=== PATIENT | male | born 2000 | race Caucasian/White ===

== ENCOUNTER 2020-03-13 09:26 | Outpatient (REF) | payer MEDICAID, SELFPAY | END 2020-03-13 09:27 | disposition home or self-care (01) | LOC: HO.LAB 09:26 | PROVIDERS: PCP Nurse Practitioner Family; Visit Provider Internal Medicine | DX: Z20.828 Contact with and (suspected) exposure to other viral communicable diseases (principal) | CPT/HCPCS: C9803; U0003 ==

== ENCOUNTER 2022-08-05 07:14 | Emergency (ER) | payer MEDICAID, SELFPAY ==
--- NOTE | ~2022-08-05 | XR_ITS ---
EXAMINATION: XR CHEST CLINICAL INFORMATION: Fever COMPARISON: None available. TECHNIQUE: 2 views of the chest were obtained. FINDINGS: No significant abnormality is noted involving the heart, lungs, mediastinum, bony thorax or soft tissues. XR/XR chest 2V IMPRESSION: Unremarkable chest examination.
[2022-08-05 07:45] VITALS: PULSE 104; RESP 16; TEMP 38.4; O2SAT 98; BMI 25.7
--- NOTE | 2022-08-05 07:48 | ED_ITS ---
HPI - Fever General Chief Complaint: Fever Stated Complaint: fever Time Seen by Provider: 08/05/22 07:45 Source: patient, RN notes reviewed and old records reviewed Mode of arrival: ambulatory History of Present Illness HPI Narrative: 21-year-old male with no significant past medical history presenting to the ED complaining of fever T-max 101 degrees x 3 days. Denies taking any antipyretics today. Reports associated nasal congestion/rhinorrhea, dry cough, and sore throat. Reports mild CP yesterday, resolved at present. Denies ear pain, difficulty/inability to swallow, SOB, abdominal pain, nausea/vomiting, decreased p.o. intake, recent travel, sick contacts MD elicited complaint: fever Related Data Allergies Allergy/AdvReac Type Severity Reaction Status Date / Time No Known Allergies Allergy Unverified 11/27/19 16:59 [No Known Allergies*] Review of Systems Review of Systems: Constitutional: + Fever, No Chills ENT/Mouth: No Ear Pain, + Nasal Congestion, No Sinus Pain, No Hoarseness, + sore throat, + Rhinorrhea, No Swallowing Difficulty Cardiovascular: No Chest Pain, No SOB Respiratory: + Cough, No Sputum, No Wheezing Gastrointestinal: No Nausea, No Vomiting, No Diarrhea, No Constipation, No Abdominal pain Genitourinary: No Dysuria, No Urinary Frequency, No Flank Pain Musculoskeletal: No joint pain, + Myalgias, No Joint Swelling Skin: No Skin Lesions, No rash Neuro: No Weakness Yes all other systems are reviewed and are negative Constitutional: Constitutional: Reports as per [facility] Past Medical History Attestation statement: The following information was validated with the patient. Source: old records reviewed Social History Social History Advance Directives: No Advance Directives Information Provided: No Physical Exam Vital Signs: Vital Signs: Last Vital Signs Temp 98.1 F 08/05/22 11:01 Pulse 92 08/05/22 11:01 Resp 16 08/05/22 11:01 BP 132/66 08/05/22 11:01 Pulse Ox 98 08/05/22 11:01 O2 Del Method Room Air 08/05/22 11:01 BMI result Body Mass Index 25.7 Const: General: cooperative, healthy appearing, no acute distress, alert and awake Orientation/consciousness: patient oriented x3 Limitations: no limitations HEENT: Head: Yes normal to inspection and Yes atraumatic Ears: hearing raj sly normal bilaterally, external ears normal, TM's normal bilaterally and mastoids normal General nose exam: Normal external nose present Face and sinus: Yes normal facial exam Throat: Yes posterior oropharynx normal, Yes tonsils normal, Yes uvula midline, No uvula laterally displaced and No uvular edema Eyes: General: appearance normal, both eyes and all related structures EOM: EOMs intact bilaterally Neck: Neck: Yes normal visual inspection and Yes no meningeal signs Resp: Effort & Inspection: normal respiratory effort and no respiratory distress Auscultation: clear to auscultation bilaterally, no crackles and no wheezes Cardio: Rate: regular rate Heart sounds: S1 normal heart sound present and S2 normal heart sound present Skin: Rashes: no rashes Wounds: no wounds Neuro: General: patient oriented x3, tone normal and no meningeal signs Gait exam (Neuro): Normal gait present Extrem: General: Yes normal to inspection Course Course Course Narrative: -1117--vital signs improved after PO Motrin -COVID/influenza/rapid strep negative. CXR unremarkable > likely viral etiology Results discussed with patient including worrisome signs and symptoms and strict return precautions, and when to return to the emergency department. They verbalized understanding and feel safe for discharge at this time. Medications Administered Discontinued Medications Generic Name Dose Route Start Last Admin Trade Name Freq PRN Reason Stop Dose Admin Ibuprofen 600 mg 08/05/22 08:06 08/05/22 08:39 Ibuprofen 600 Mg Tablet PO 08/05/22 08:07 600 mg ONCE ONE Administration Medical Decision Making Medical Decision Making [facility] Narrative: 21-year-old male with no significant past medical history presenting to the ED complaining of fever T-max 101 degrees x 3 days. Denies taking any antipyretics today. On exam febrile to 101.2, tachycardic likely from fever, NAD/nontoxic appearing, lungs CTA, exam otherwise nonfocal. Concern for viral illness vs pneumonia vs pharyngitis. Lower suspicion for ACS/PE Plan COVID/flu, rapid strep, antipyretic, CXR, re-evaluate Please refer to course for remaining clinical decision making, interpretation of labs/imaging results, and discussions with consultants and/or family members. Differential Diagnosis Differential Diagnoses: The differential diagnosis associated with the presentation includes As above Admission/Observation Consideration of admission/observation: Escalation of care including admission/observation considered Lab Data MDM Lab Attestation statement: I reviewed the patient's lab results. Labs: Lab Results 08/05/22 08/05/22 08/05/22 Range/Units 08:54 08:54 08:54 COVID-19 (AMEYA) Negative (Negative) COVID-19 Clin Com See Note Influenza Type A (DEVONTE) Negative (Negative) Influenza A & B Note See Note S. pyogenes GrpA DEVONTE Negative (Negative) Radiology Impression Discussion of test interpretation with radiology: I have reviewed the radiologist's reading. External Record Review External record reviewed: Inpatient record, Office record, Outpatient record, Prior outpatient labs, Prior outpatient radiology, Primary care record and Outside ED record Tests considered The following testing was considered but not selected: As above Discharge Plan Discharge Clinical Impression: Viral infection Patient Disposition: Home, Self-Care Instructions: Viral Syndrome (ED) Additional Instructions: You tested negative for COVID, flu, and strep. Her x-rays unremarkable Please alternate Tylenol and Motrin at home to control fever Stay hydrated Rest Follow-up with her doctor If symptoms persist or worsen return to the ED Referrals: [facility] [Primary Care Provider] - 3 days Stand Alone Forms: Work/School Release Interventions: ED Discharge Assessment Last Done: 08/05/22 11:25 Discharge Date/Time: 08/05/22 11:25
--- NOTE | 2022-08-05 08:18 | ECG_ITS ---
Test Reason : CP Blood Pressure : / mmHG Vent. Rate : 095 BPM Atrial Rate : 095 BPM P-R Int : 124 ms QRS Dur : 082 ms QT Int : 332 ms P-R-T Axes : 054 087 034 degrees QTc Int : 417 ms Normal sinus rhythm with sinus arrhythmia Normal ECG When compared with ECG of 01-JUL-2019 21:05, Nonspecific T wave abnormality, improved in Inferior leads Nonspecific T wave abnormality no longer evident in Anterolateral leads Referred By: Garima Tamayo Electronically Signed By:BREONNA SALAMANCA
[2022-08-05] MEDS: Ibuprofen 600 MG TABLET PO (08:39)
[2022-08-05 09:24] LABS: IDNOW Serial# 08D9AD1C; IDNOW Serial# BCCEAD1C; Influenza A Negative (Negative); Strep A Nucleic Acid Negative (Negative)
[2022-08-05 09:41] LABS: IDNOW Serial# 08D9AD1C
[2022-08-05 09:42] LABS: COVID-19 Test Negative (Negative)
[2022-08-05 11:01] VITALS: BP 132/66; PULSE 92; RESP 16; TEMP 36.7; O2SAT 98
[2022-08-08 09:05] LABS: Influenza B2 Negative (Negative)
== END 2022-08-05 11:25 | disposition home or self-care (01) ==
PROVIDERS: Physician Assistant; Emergency Provider Internal Medicine
DX: B34.9 Viral infection, unspecified (principal); R50.9 Fever, unspecified; Z20.822 Contact with and (suspected) exposure to COVID-19; R00.0 Tachycardia, unspecified
CPT/HCPCS: 71046; 87502; 87635; 87651; 93005; 99283; 99284

== ENCOUNTER 2023-07-03 09:51 | Outpatient (REF) | payer OTHER, SELFPAY ==
--- NOTE | ~2023-07-03 | XR_ITS ---
EXAMINATION: XR WRIST, LEFT CLINICAL INFORMATION: Left wrist pain, distal ulnar region, athlete, swelling onset, not resolved after 6 to 8 weeks after rest. COMPARISON: None available. TECHNIQUE: 5 views of the left wrist. FINDINGS: Bone mineralization is normal. Mild degenerative changes in the first carpometacarpal joint with joint space narrowing and hypertrophic change. XR/XR wrist LT min 3V IMPRESSION: 1. Mild degenerative changes first carpometacarpal joint. 2. Recommend follow up imaging in 10-14 days if fracture is suspected.
== END 2023-07-03 09:52 | disposition home or self-care (01) ==
LOC: HO.HHCX 09:51
PROVIDERS: Visit Provider Nurse Practitioner Family
DX: M24.132 Other articular cartilage disorders, left wrist (principal)
CPT/HCPCS: 73110

== ENCOUNTER 2023-07-19 09:16 | Outpatient (AMB) | payer OTHER, SELFPAY ==
--- NOTE | 2023-07-19 09:19 | A.OFFVIS_ITS ---
Intake Visit Reasons: New Pt - left wrist pain Intake Note: Nicko a 22 year old right hand dominant male who presents today for an evaluation of left wrist pain. Patient reports his pain has been present for about 1.5 months, denies injury. States improvement in his discomfort however he continues to have clicking and discomfort with certain twisting movements. His pain is located at his ulnar aspect of wrist. He found some relief with use of wrist brace. Allergies No Known Allergies [No Known Allergies*] Allergy (Unverified 07/19/23 09:28) Medication List - Last Reconciled 07/19/23 by Leila Stafford PA-C No Known Home Meds HPI HPI New Pt - left wrist pain: Details: 22-year-old right hand dominant male who presents to the office today for evaluation of left wrist pain for about 1.5 months. He states he has improvement in his discomfort however he continues to have a clicking sensation and discomfort at the ulnar aspect of wrist which comes with certain twisting movements. He finds mild relief with wrist brace. He has not had any injury in the past. [facility] Social History (Updated 07/19/23 @ 09:23 by Mary Montoya Lul) Current occupation: director, right hand dominant Review of Systems Const All systems reviewed & are unremarkable except as noted in HPI and below Physical Exam Const General: cooperative, healthy appearing, comfortable, no acute distress, well developed and alert Orientation/consciousness: patient oriented x3 HEENT Head: Yes normal to inspection, Yes normocephalic and Yes atraumatic Eyes General: appearance normal, both eyes and all related structures Resp Effort & Inspection: normal respiratory effort and able to speak in complete sentences Cardio Rate: regular rate Peripheral pulses: Peripheral pulses 2+ throughout GI Palpation (GI): Soft to palpation Skin Lesions: no lesions Rashes: no rashes Neuro General: patient oriented x3 Extrem Other: Left wrist: Normal to inspection. No swelling. He does have some tenderness over the FCU tendon of wrist. No pain with wrist flexion and extension. Mild discomfort with wrist supination. No pain along the TFCC or with wrist compression. No pain over the scaffold lunate region. NVI. Results Reviewed Results Reviewed: xrays of the left wrist are negative for acute fracture or dislocation Assessment & Plan Assessment & Plan (1) Flexor carpi ulnaris tendinitis: Code(s): M77.8 - Other enthesopathies, not elsewhere classified Category: Medical Plan We discussed options which include conservative management with occupational therapy and avoiding heavy lifting or repetitive motions for 4 weeks to avoid flareups. He will continue to increase activity as tolerated and see me back if symptoms persist or worsens. He is content with this plan. Orders: Orders OT Evaluation and Treatment Today M77.8 - Other enthesopathies, not elsewhere classified Patient Instructions: Scribed for Leila Stafford PA-C, by Roly Askew medical insurance claims specialist, on 07/19/2023 at 9:15 AM EST. I, Leila Stafford PA-C, have personally reviewed and agree with the information entered by the scribe. Coding Level of Care Code New Pt Level 3 (38555) Diagnoses Flexor carpi ulnaris tendinitis M77.8
== END 2023-07-19 09:46 | disposition home or self-care (01) ==
PROVIDERS: PCP Internal Medicine; Visit Provider Physician Assistant
DX: M77.8 Other enthesopathies, not elsewhere classified (principal)
CPT/HCPCS: 99203

== ENCOUNTER → 2023-07-19 09:16 | Outpatient (BNVA) | payer OTHER, SELFPAY | PROVIDERS: PCP Internal Medicine; Visit Provider Physician Assistant ==

== ENCOUNTER 2023-09-14 08:00 | Outpatient (RCR) | payer OTHER, SELFPAY ==
--- NOTE | 2023-08-10 10:57 | MHC.OT.EP ---
[address] [phone] Occupational Therapy Plan of Care Patient Name: Nicko King Date of Evaluation: 08/10/23 Diagnosis: enthesopathies weakness Pain Location: Along ulnar side of wrist; sx's do not radiate into forearm or digits Pain Score: 5 Pain Scale Used: Numeric (0 - 10) Aggravating Factors: full supination, wrist extension, and weight bearing Alleviating Factors: avoiding weight bearing/ tylenol Assessment: Pt is a 22 yr. old R hand dominant male who reports pain/ discomfort along the ulnar side of his L wrist since May while increasing his gym routine (weight lifting/ basketball). He reports waking up in May and not being able to weight bear through his wrist; supinate/ extend his wrist w/ out extreme pain. He reports he has been avoiding UE work outs at the gym and his pain free AROM has improved. 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 Thank you once again for your referral.
== END 2023-09-14 08:30 | disposition home or self-care (01) ==
LOC: HO.OT 08:00
PROVIDERS: PCP Student in an Organized Health Care Education/Training Program; Visit Provider Physician Assistant
DX: M77.8 Other enthesopathies, not elsewhere classified (principal)
CPT/HCPCS: 97110; 97140; 97165; 97535